=== PATIENT | male | born 1995 | race Caucasian/White ===

== ENCOUNTER 2020-10-05 08:48 | Observation (INO) | payer BC, SELFPAY ==
[2020-10-05] VITALS (19 sets, daily range): BP systolic 112–145; BP diastolic 50–89; PULSE 58–78; RESP 12–20; TEMP 36.2–37.9; O2SAT 97–100; BMI 30.4
--- NOTE | ~2020-10-05 | CT_ITS ---
EXAMINATION: CT abdomen pelvis w con EXAM DATE: 10/05/2020 09:57 INDICATION: RLQ pain . TECHNIQUE: Spiral CT of the abdomen and pelvis was performed following intravenous injection of 1 mL Omnipaque 350. Axial, coronal and sagittal images of the abdomen and pelvis were reviewed. The dose -length product (DLP) for this examination was 559.98 mGy-cm. The exposure was tailored according to patient size (auto mA exposure control), and iterative reconstruction (ASIR) was used as additional dose reduction technique. There is no prior study for comparison. FINDINGS: The liver, spleen, adrenal glands and pancreas are unremarkable. Gallbladder is unremarkab le. No biliary obstruction. Portal and splenic veins are patent. Kidneys enhance symmetrically. T here is no hydronephrosis. The prostate is unremarkable. The bladder is unremarkable. There is no retroperitoneal or pelvic lymphadenopathy. Body and tip of the appendix are severely dilated up to 1.5 cm. There is moderate adjacent inflammati on. No perforation or abscess. Acute uncomplicated appendicitis. Some small associated reactive lymph nodes. The stomach and small bowel are unremarkable. There is expected amount of colonic stool. N o free intraperitoneal gas. The heart is normal in size. There are no pericardial or pleural effus ions. The lung bases are unremarkable. The bones are unremarkable. IMPRESSION: Acute uncomplicated appendicitis. I discussed this impression with Seng Gutierrez MD at 10/05/2020 10:03 CDT. Reviewed, dictated and finalized at location A.
[2020-10-05 09:09] LABS: Basophils Percent Auto 0.2 % (0.2-1.2); Eosinophils Absolute Auto 0.1 K/mm3 (0-0.3); Eosinophils Percent Auto 0.7 % (0-4.4); Hematocrit 45.7 % (42.0-52.0); Hemoglobin 15.7 g/dL (14.0-18.0); Immature Granulocyte Absolute 0.02 K/mm3 (0.00-0.031); Immature Granulocyte Percent A 0.2 % (0-0.5); Lymphocytes Absolute Auto 2.43 K/mm3 (0.9-3.2); Lymphocytes Percent Auto 25.7 % (18.3-44.2); Mean Corpuscular HGB Conc 34.4 g/dl (32-36); Mean Corpuscular Hemoglobin 31.2 pg (26-34); Mean Corpuscular Volume 90.9 fl (80-100); Mean Platelet Volume 9.9 fl (7.4-10.4); Monocytes Absolute Auto 0.6 K/mm3 (0.1-0.6); Monocytes Percent Auto 6.3 % (2.6-8.5); Neutrophils Absolute Auto 6.3 K/mm3 (1.3-6.7); Neutrophils Percent Auto 66.9 % (45.5-73.1); Platelet Count Result 254 k/mm3 (150-375); Red Blood Count 5.03 M/mm3 (4.6-6.20); Red Cell Distribution Width 11.9 % (11.5-14.5); White Blood Count 9.5 K/mm3 (4.5-10.0)
[2020-10-05 09:18] LABS: Alanine Aminotransferase 17 U/L (4-50); Albumin Level 4.6 g/dL (3.5-5.1); Alkaline Phosphatase 66 U/L (38-126); Anion Gap 10 mmol/L (8-16); Aspartate Amino Transferase 24 U/L (17-59); Bilirubin,Total 0.9 mg/dL (0.2-1.3); Blood Urea Nitrogen 14 mg/dL (9-20); Calcium 9.7 mg/dL (8.4-10.2); Carbon Dioxide 27 mmol/L (22-30); Chloride 105 mmol/L (98-107); Estimated CRCL calculation 120 ml/min; Estimated Glomerular Filt Rate > 60; Glucose 98 mg/dL (75-110); Lipase 30 U/L (23-300); Sodium 142 mmol/L (137-145)
[2020-10-05] MEDS: MORPHINE SULFATE (*CRX) 4 MG/ML INJ IV PUSH (09:22)
--- NOTE | 2020-10-05 09:31 | ED.GENADULT ---
HPI - General Adult General Chief complaint: Abdominal Pain Stated complaint: R Abd Pain Time Seen by Provider: 10/05/20 09:06 History of Present Illness HPI narrative: Patient is a 25-year-old male who presents ER with right lower quadrant abdominal pain. Had generalized abdominal pain in the lower abdomen 2 days ago but worsened in the right lower quadrant of the last day. Mild nausea but no vomiting. No diarrhea or constipation. No previous symptoms like this. Denies urinary symptoms. Pain is worse with any type of movement and better with sitting still. Related Data Home Medications Medication Instructions Recorded Confirmed No Home Medications 10/05/20 10/05/20 Allergies Allergy/AdvReac Type Severity Reaction Status Date / Time No Known Allergies Allergy Verified 10/05/20 09:22 Review of Systems Review of Systems: All systems reviewed & are unremarkable except as noted in HPI and below Constitutional: Constitutional: Denies chills and Denies fever(s) Gastrointestinal: Gastrointestinal: Reports abdominal pain, Denies constipation, Denies diarrhea, Reports nausea and Denies vomiting Genitourinary: Genitourinary: Denies hematuria, Denies dysuria and Denies urinary frequency PMFSH Past Medical History Medical History (Updated 10/05/20 @ 11:03 by Seng Gutierrez MD) Healthy adult male Surgical History Surgical History (Updated 10/05/20 @ 09:32 by Seng Gutierrez MD) No history of previous surgery Social History Social History (Updated 10/05/20 @ 09:32 by Seng Gutierrez MD) Smoking status: Never smoker Exam Narrative: Exam Narrative: GENERAL: Well-appearing, well-nourished, and in no acute distress. HEAD: Normocephalic, atraumatic. ENT: Mucous membranes moist. CHEST: Clear to auscultation. No respiratory distress. HEART: Regular rate and rhythm. Normal peripheral pulses. ABDOMEN: Soft, tender palpation right lower quadrant with guarding, nondistended. EXTREMITIES: Normal range of motion. No edema. SKIN: Warm, dry, no rash. NEURO: Alert and oriented x3. PSYCH: Normal mood and affect. Course Course Emergency Course: Discussed case with general surgery. Recommends admission for observation until an OR slot can be found. IV antibiotics ordered. Patient will remain n.p.o. Vital Signs Vital signs: Vital Signs Temperature 97.5 F L 10/05/20 08:53 Pulse Rate 67 10/05/20 08:53 Respiratory Rate 18 10/05/20 08:53 Blood Pressure 145/84 H 10/05/20 08:53 Pulse Oximetry 100 10/05/20 08:53 Temperature 97.5 F L 10/05/20 08:53 Pulse Rate 71 10/05/20 10:20 Respiratory Rate 18 10/05/20 10:20 Blood Pressure 127/75 10/05/20 10:20 Pulse Oximetry 98 10/05/20 10:20 Medical Decision Making Vital Signs Vital Signs: Vital Signs Temperature 97.5 F L 10/05/20 08:53 Pulse Rate 67 10/05/20 08:53 Respiratory Rate 18 10/05/20 08:53 Blood Pressure 145/84 H 10/05/20 08:53 Pulse Oximetry 100 10/05/20 08:53 Temperature 97.5 F L 10/05/20 08:53 Pulse Rate 71 10/05/20 10:20 Respiratory Rate 18 10/05/20 10:20 Blood Pressure 127/75 10/05/20 10:20 Pulse Oximetry 98 10/05/20 10:20 Lab Data Result diagrams: 10/05/20 08:58 10/05/20 08:58 Labs: Lab Results 10/05/20 10/05/20 10/05/20 Range/Units 08:58 08:58 09:25 WBC 9.5 (4.5-10.0) K/mm3 RBC 5.03 (4.6-6.20) M/mm3 Hgb 15.7 (14.0-18.0) g/dL Hct 45.7 (42.0-52.0) % MCV 90.9 (80-100) fl MCH 31.2 (26-34) pg MCHC 34.4 (32-36) g/dl RDW 11.9 (11.5-14.5) % Plt Count 254 (150-375) k/mm3 MPV 9.9 (7.4-10.4) fl Immature Gran % (Auto) 0.2 (0-0.5) % Neut % (Auto) 66.9 (45.5-73.1) % Lymph % (Auto) 25.7 (18.3-44.2) % [place] % (Auto) 6.3 (2.6-8.5) % Eos % (Auto) 0.7 (0-4.4) % Baso % (Auto) 0.2 (0.2-1.2) % Lymph # (Auto) 2.43 (0.9-3.2) K/mm3 [place] # (Auto) 0.6 (0.1-0.6) K/mm3
[2020-10-05 09:39] LABS: Add Urine Microscopic? YES; Appearance Urine Clear (Clear); Bilirubin Urine Negative (Negative); Blood Urine Negative (Negative); Color Urine Yellow (Yellow); Glucose Urine UA Negative (Negative); Ketones Urine Negative (Negative); Leukocyte Esterase Ur Negative LEU/UL (Negative); Mucus Urine Rare /lpf; Nitrate Urine Negative (Negative); Protein Urine Negative (Negative); RBC Urine 0-2 /hpf (0-2); Specific Grav Ur 1.024 (1.001-1.035); WBC Urine 0-3 /hpf
[2020-10-05] MEDS: ERTAPENEM 1 GM/NS 50 ML 1 GM/50 ML BAG IVPB (10:30)
--- NOTE | 2020-10-05 11:05 | PC.NURSE ---
Report given to BROWN [place]
--- NOTE | 2020-10-05 12:23 | ADMGEN ---
This patient, Samson Godoy, was admitted to [facility] Surg Room 309-01. Patient/family oriented to hospital policies and general routines including ID bracelet, bed and alarms, visiting hours, pain management, procedures, bathroom and other care routines, personal items, smoking policy, room service/diet, and visiting hours. Information on how to activate the Rapid Response Team has been discussed. Patient/Family are encouraged to report perceived risks to care and to ask questions if they do not understand what they are told or what they should do.
[2020-10-05] MEDS: SODIUM CHLORIDE 0.9% IV 1,000 ML 100 ML IV CONT (12:52)
--- NOTE | 2020-10-05 12:54 | PM.IMHP ---
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 This was mostly at the umbilicus level or lower. He went home from work at 11AM yesterday and had something eat and slept and promised himself that he if got up the next afternoon he would go the hospital if it was not better. The pain did seem to be better and he went to work again last night at about 11:00 p.m. and forced himself to eat some chicken sandwiches at about 2:00 a.m. this morning. After that though the pain got worse so he left before the end of his shift at around 8:00 a.m. this morning and came to the hospital emergency room here at [place]. Workup the emergency room shows acute uncomplicated appendicitis. See CT scan report. Patient is otherwise fairly healthy. Review of Systems Constitutional: Constitutional: Reports no additional constitutional complaints and Denies frequent falls Eyes: Eyes: Reports as per HPI ENT: Reports Normal hearing present, Denies dizziness and Reports other (Mucous membranes moist.) Cardiovascular: Cardiovascular: Denies chest pain, Denies palpitations, Denies dyspnea and Denies dyspnea on exertion Respiratory: Respiratory: Denies hemoptysis, Denies dyspnea, Denies dyspnea on exertion and Denies wheezing Gastrointestinal: Gastrointestinal: Reports as per HPI, Denies heartburn, Denies loose stools and Denies vomiting Genitourinary: Genitourinary: Denies hematuria, Denies nocturia and Denies urinary frequency Musculoskeletal: Musculoskeletal: Denies deformity and Reports other ( no clubbing,cyanosis, or edema) Integumentary/Breasts: Skin/Breast: Denies new lesions, Denies rash and Denies unusual bruising Neurologic: Reports Normal hearing present, Denies dizziness, Denies frequent falls, Denies memory loss and Denies seizure-like activity Psychiatric: Psychiatric: Denies memory loss and Reports other ( normal mood and mental status) Endocrine: Endocrine: Denies cold intolerance and Denies palpitations Hematologic/Lymphatic: Hematologic/Lymphatic: Denies easy bleeding and Denies easy bruising Allergic/Immunologic: Allergic/Immunologic: Denies wheezing and Reports other ( no lymphadenopathy) [facility] Past Medical History Medical History (Updated 10/05/20 @ 13:13 by Rustam Stack MD) Healthy adult male Surgical History Surgical History (Updated 10/05/20 @ 09:32 by Seng Gutierrez MD) No history of previous surgery Family History Family History (Updated 10/05/20 @ 12:26 by Venkat Joens RN) Father Hypertension Social History Social History (Updated 10/05/20 @ 09:32 by Seng Gutierrez MD) Smoking status: Never smoker Alcohol intake: current Drinks per week: 2 Substance use: never Substance use type: does not use Gender identity (if verbalized by the patient): Male Spiritual care concerns: No Meds Home Medications and Allergies Home Medications Medication Instructions Recorded Confirmed Type No Home Medications 10/05/20 10/05/20 History Allergies Allergy/AdvReac Type Severity Reaction Status Date / Time No Known Allergies Allergy Verified 10/05/20 12:29 Vital Signs Vital Signs - 24 hr 10/05/20 08:53 10/05/20 09:20 10/05/20 10:20 Temperature 36.4 C L Pulse Rate 67 66 71 Respiratory Rate 18 18 18 Blood Pressure 145/84 H 139/85 127/75 Pulse Oximetry 100 100 98 10/05/20 11:35 10/05/20 12:05 10/05/20 12:30 Temperature 36.2 C L 36.2 C L Pulse Rate 78 76 76 Respiratory Rate 16 20 20 Blood Pressure 123/84 138/67 138/67 Pulse Oximetry 98 100 100 Exam Const: General: cooperative, no acute distress, well developed, alert and awake Nutritional Appearance: well nourished Orientation
--- NOTE | 2020-10-05 14:24 | WPDANESEPPF ---
Anes - Initial Pre Proc Eval Procedure: Operation Date: 10/05/20 15:30 Proposed Procedures p Laparoscopic Appendectomy - Rustam Stack MD Date/Time: 10/05/20 14:24 Surgeon: Debi Renner MD Pre Op Diagnosis: appendicites Patient Data Age: 25 Gender: M Height: 1.8 m Weight: 99.1 kg Last Vital Signs Temp 36.6 C 10/05/20 14:08 Pulse 68 10/05/20 14:08 Resp 14 10/05/20 14:08 BP 141/61 H 10/05/20 14:08 Pulse Ox 98 10/05/20 14:08 Allergies Allergy/AdvReac Type Severity Reaction Status Date / Time No Known Allergies Allergy Verified 10/05/20 12:29 Home Medications Medication Instructions Recorded Confirmed Type No Home Medications 10/05/20 10/05/20 History Laboratory Tests 10/05/20 10/05/20 10/05/20 08:58 08:58 09:25 WBC 9.5 K/mm3 K/mm3 (4.5-10.0) RBC 5.03 M/mm3 M/mm3 (4.6-6.20) Hgb 15.7 g/dL g/dL (14.0-18.0) Hct 45.7 % % (42.0-52.0) MCV 90.9 fl fl (80-100) MCH 31.2 pg pg (26-34) MCHC 34.4 g/dl g/dl (32-36) RDW 11.9 % % (11.5-14.5) Plt Count 254 k/mm3 k/mm3 (150-375) MPV 9.9 fl fl (7.4-10.4) Immature Gran % (Auto) 0.2 % % (0-0.5) Neut % (Auto) 66.9 % % (45.5-73.1) Lymph % (Auto) 25.7 % % (18.3-44.2) [place] % (Auto) 6.3 % % (2.6-8.5) Eos % (Auto) 0.7 % % (0-4.4) Baso % (Auto) 0.2 % % (0.2-1.2) Lymph # (Auto) 2.43 K/mm3 K/mm3 (0.9-3.2) [place] # (Auto) 0.6 K/mm3 K/mm3 (0.1-0.6) Eos # (Auto) 0.1 K/mm3 K/mm3 (0-0.3) Baso # (Auto) 0.0 K/mm3 K/mm3 (0.0-0.1) Abs Immat Gran (auto) 0.02 K/mm3 K/mm3 (0.00-0.031) Absolute Neuts (auto) 6.3 K/mm3 K/mm3 (1.3-6.7) Absolute Nucleated RBC 0.0 K/mm3 K/mm3 (0.0-0.012) Nucleated RBC % 0.0 % % (0.0-0.2) Sodium 142 mmol/L mmol/L (137-145) Potassium 4.0 mmol/L mmol/L (3.4-5.0) Chloride 105 mmol/L mmol/L (98-107) Carbon Dioxide 27 mmol/L mmol/L (22-30) Anion Gap 10 mmol/L mmol/L (8-16) BUN 14 mg/dL mg/dL (9-20) Creatinine 1.00 mg/dL mg/dL (0.7-1.3) Estim Creat Clear Calc 120 ml/min ml/min Estimated GFR > 60 (59 - ) Glucose 98 mg/dL mg/dL (75-110) Calcium 9.7 mg/dL mg/dL (8.4-10.2) Total Bilirubin 0.9 mg/dL mg/dL (0.2-1.3) AST 24 U/L U/L (17-59) ALT 17 U/L U/L (4-50) Alkaline Phosphatase 66 U/L U/L (38-126) Total Protein 8.0 g/dL g/dL (6.3-8.2) Albumin 4.6 g/dL g/dL (3.5-5.1) Lipase 30 U/L U/L (23-300) Urine Color Yellow (Yellow) Urine Appearance Clear (Clear) Urine pH 6.0 (5.0-9.0) Ur Specific [place] 1.024 (1.001-1.035) Urine Protein Negative mg/dL mg/dL (Negative) Urine Glucose (UA) Negative mg/dL mg/dL (Negative) Urine Ketones Negative mg/dL mg/dL (Negative) Ur Blood (Man) Negative (Negative) Urine Nitrate Negative (Negative) Urine Bilirubin Negative (Negative) Urine Urobilinogen 2.0 mg/dL H mg/dL (<2.0) Leukocyte Esterase Rfl Negative JERROD/UL JERROD/UL (Negative) Urine RBC 0-2 /hpf /hpf (0-2) Urine WBC 0-3 /hpf /hpf Urine Mucus Rare /lpf /lpf Patient hx anesthesia problems: none Family hx anesthesia problems: none [facility] Past Medical History Medical History (Updated 10/05/20 @ 14:25 by Tab Gorman MD) Healthy adult male Obesity (BMI 30.0-34.9) (Unknown) Surgical History Surgical History (Updated 10/05/20 @ 09:32 by Seng Gutierrez MD) No history of previous surgery Family History Family History (Updated 10/05/20 @ 12:26 by Venkat Jones RN) Fa
[2020-10-05] MEDS: LACTATED RINGERS 1,000 ML 30 ML IV CONT (14:35)
[2020-10-05] MEDS: BUPIVACAINE/EPINEPHRINE 0.5% 10 ML VIAL 30 ML INFILTRATE (15:39)
--- NOTE | 2020-10-05 16:11 | W.PM.PROC2 ---
Procedure Note - Detailed Date of Procedure 10/05/20 Pre-op Diagnosis Acute uncomplicated appendicitis Post-op Diagnosis same Procedure Performed laparoscopic appendectomy Surgeon Rustam Stack MD Construction Checker Sandrita DASILVA. OR Behavioral Health Clinician Anesthesia general Indications Patient appropriate symptoms and a CT scan showing I swollen appendix with inflammation in the fat around it. Findings Inflamed appendix lying just lateral to the cecum with inflammatory attachments to the right lateral abdominal sidewall that were taken down easily. Description of Procedure The patient was seen again in the Holding Room. The risks, benefits, complications, treatment options, and expected outcomes were discussed with the patient and/or family. The possibilities of reaction to medication, pulmonary aspiration, perforation of viscus, bleeding, recurrent infection, finding a normal appendix, the need for additional procedures, failure to diagnose a condition, and creating a complication requiring transfusion or operation were discussed. There was concurrence with the proposed plan and informed consent was obtained. The site of surgery was properly noted/marked. The patient was taken to Operating Room, and a time out was preformed which identified this as the proper patient, and the procedure verified as laparoscopic appendectomy, possible open. The patient was placed in the supine position and general anesthesia was induced, along with placement of orogastric tube, SCD hose, and a Hough catheter. The abdomen was prepped and draped in a sterile fashion. A 5 mm umbilical incision was made and the peritoneal cavity was accessed using the Veress needle technique. Once the abdomen was insufflated to 14 mmHg pressure a 5 mm XL trocar over the 0? 5 mm scope was carefully twisted into the abdomen via the umbilicus. The pneumoperitoneum was then established to steady pressure of 14 mm Hg. A 12 mm laparoscopic port was placed through a transverse suprapubic incision. An additional 5 mm cannula was then placed in the left lower quadrant of the abdomen at a level half way between the umbilicus and pubic symphysis under direct vision. A careful evaluation of the entire abdomen was carried out. The patient was placed in Trendelenburg and left lateral decubitus position. The small intestines were retracted in the cephalad and left lateral direction away from the pelvis and right lower quadrant. The patient was found to have an enlarged and inflamed appendix that was extending [into the right side of the pelvis. There was no evidence of perforation. The appendix was carefully dissected. Once it was free a 45 mm ethicon endogastroentestinal stapler with a vascular load was placed across the mesoappendix and the base was narrow enough that it fit all the way across the base of the Appendix also. This was fired and hemostasis was checked along the staple line and appeared to be adequate. There was approximately 7 cc of blood that accumulated initially after transecting the specimen however we packed this with an unfolded 4 x 4 as we extracted the appendix and when we looked again all bleeding was stopped. Minimal appendiceal stump was left in place. There was no evidence of bleeding, leakage, or complication after division of the appendix at its junction with the cecum.. The appendix was then placed in an endobag which had been brought through the 12 mm suprapubic port site. The appendix and the bag were then extracted through this larger port site in the suprapubic position. The suprapubic port site was closed using a #1 Polysorb suture passed with a Catarino-Mendez cone and needle suture passer and a subsequent separate suture was placed using a standard needle lucero externally through the an incision at the level of the fascia. The trocar site skin wounds were closed using 4-0 undyed Monocryl and surgical glue. Instrument, sponge, and needle counts were correct at the conclusion of the
[2020-10-05] MEDS: ONDANSETRON INJ 4 MG/2 ML VIAL IV PUSH (16:33)
[2020-10-05] MEDS: diphenhydrAMINE HCl INJ 50 MG/ML VIAL 25 MG IV PUSH (16:37)
[2020-10-05] MEDS: fentaNYL CITRATE INJ (*CRX) 100 MCG/2 ML VIAL 25 MCG IV PUSH ×2 (16:40→16:53)
--- NOTE | 2020-10-05 17:42 | PC.NURSE ---
Patient returned to room [facility] from PACU at 1735
[2020-10-05] MEDS: HYDROcodone/acetaminophen (*CRX) 5-325 MG TABLET 1 TAB PO (20:34)
[2020-10-05] MEDS: SENNA/DOCUSATE SODIUM TABLET 2 TAB PO (20:34)
[2020-10-06 03:06] VITALS: BP 116/48; PULSE 60; RESP 18; TEMP 36.6; O2SAT 98
[2020-10-06] MEDS: HYDROcodone/acetaminophen (*CRX) 5-325 MG TABLET 1 TAB PO (03:55)
[2020-10-06 06:00] VITALS: BP 119/54; PULSE 61; RESP 18; TEMP 37.1; O2SAT 99
[2020-10-06] MEDS: SODIUM CHLORIDE 0.9% IV 1,000 ML 100 ML IV CONT (06:15)
[2020-10-06 07:06] VITALS: BP 125/76; PULSE 104; RESP 18; TEMP 36.1; O2SAT 97
[2020-10-06 07:15] LABS: Hematocrit 43.7 % (42.0-52.0); Hemoglobin 15.2 g/dL (14.0-18.0); Mean Corpuscular HGB Conc 34.8 g/dl (32-36); Mean Corpuscular Hemoglobin 31.2 pg (26-34); Mean Corpuscular Volume 89.7 fl (80-100); Mean Platelet Volume 10.5 fl (7.4-10.4); Platelet Count Result 272 k/mm3 (150-375); Red Blood Count 4.87 M/mm3 (4.6-6.20); Red Cell Distribution Width 11.6 % (11.5-14.5); White Blood Count 9.8 K/mm3 (4.5-10.0)
[2020-10-06 07:32] LABS: Anion Gap 11 mmol/L (8-16); Blood Urea Nitrogen 12 mg/dL (9-20); Calcium 9.7 mg/dL (8.4-10.2); Carbon Dioxide 26 mmol/L (22-30); Chloride 103 mmol/L (98-107); Estimated CRCL calculation 132 ml/min; Estimated Glomerular Filt Rate > 60; Glucose 98 mg/dL (75-110); Potassium 3.9 mmol/L (3.4-5.0); Sodium 140 mmol/L (137-145)
--- NOTE | 2020-10-06 07:40 | WPDANESPN ---
Anes - Prog Note Post-Op Date/Time: 10/06/20 07:40 Cardiovascular status: normal Respiratory status: normal Airway patency: baseline Mental status: baseline Post-Op hydration status: normal Vital Signs: Last Vital Signs Temp 98.8 F 10/06/20 06:00 Pulse 61 10/06/20 06:00 Resp 18 10/06/20 06:00 BP 119/54 L 10/06/20 06:00 Pulse Ox 99 10/06/20 06:00 Pain Score (VAS): 0-1 I/O: Intake & Output 10/05/20 10/05/20 10/06/20 15:59 23:59 07:59 Intake Total 1200 750 Output Total 450 400 Balance 750 350 Laboratory Tests 10/06/20 05:38 10/06/20 05:38 10/05/20 10/05/20 10/05/20 08:58 08:58 09:25 WBC 9.5 RBC 5.03 Hgb 15.7 Hct 45.7 MCV 90.9 MCH 31.2 MCHC 34.4 RDW 11.9 Plt Count 254 MPV 9.9 Immature Gran % (Auto) 0.2 Neut % (Auto) 66.9 Lymph % (Auto) 25.7 [place] % (Auto) 6.3 Eos % (Auto) 0.7 Baso % (Auto) 0.2 Lymph # (Auto) 2.43 [place] # (Auto) 0.6 Eos # (Auto) 0.1 Baso # (Auto) 0.0 Abs Immat Gran (auto) 0.02 Absolute Neuts (auto) 6.3 Absolute Nucleated RBC 0.0 Nucleated RBC % 0.0 Sodium 142 Potassium 4.0 Chloride 105 Carbon Dioxide 27 Anion Gap 10 BUN 14 Creatinine 1.00 Estim Creat Clear Calc 120 Estimated GFR > 60 Glucose 98 Calcium 9.7 Total Bilirubin 0.9 AST 24 ALT 17 Alkaline Phosphatase 66 Total Protein 8.0 Albumin 4.6 Lipase 30 Urine Color Yellow Urine Appearance Clear Urine pH 6.0 Ur Specific [place] 1.024 Urine Protein Negative Urine Glucose (UA) Negative Urine Ketones Negative Ur Blood (Man) Negative Urine Nitrate Negative Urine Bilirubin Negative Urine Urobilinogen 2.0 H Leukocyte Esterase Rfl Negative Urine RBC 0-2 Urine WBC 0-3 Urine Mucus Rare 10/06/20 10/06/20 05:38 05:38 WBC 9.8 RBC 4.87 Hgb 15.2 Hct 43.7 MCV 89.7 MCH 31.2 MCHC 34.8 RDW 11.6 Plt Count 272 MPV 10.5 H Immature Gran % (Auto) Neut % (Auto) Lymph % (Auto) [place] % (Auto) Eos % (Auto) Baso % (Auto) Lymph # (Auto) [place] # (Auto) Eos # (Auto) Baso # (Auto) Abs Immat Gran (auto) Absolute Neuts (auto) Absolute Nucleated RBC Nucleated RBC % Sodium 140 Potassium 3.9 Chloride 103 Carbon Dioxide 26 Anion Gap 11 BUN 12 Creatinine 0.90 Estim Creat Clear Calc 132 Estimated GFR > 60 Glucose 98 Calcium 9.7 Total Bilirubin AST ALT Alkaline Phosphatase Total Protein Albumin Lipase Urine Color Urine Appearance Urine pH Ur Specific [place] Urine Protein Urine Glucose (UA) Urine Ketones Ur Blood (Man) Urine Nitrate Urine Bilirubin Urine Urobilinogen Leukocyte Esterase Rfl Urine RBC Urine WBC Urine Mucus Patient Feedback: Patient satisfied with anesthetic care.
--- NOTE | 2020-10-06 08:44 | PM.DS ---
DS: Admitting Diagnosis Admitting Diagnosis Admitting Diagnosis: Acute uncomplicated appendicitis Obesity with BMI of 30 DS: Discharge Diagnosis Discharge Diagnosis (1) Acute appendicitis, uncomplicated: Onset Date: ~10/04/20 Code(s): K35.80 - Unspecified acute appendicitis Status: Acute Assessment and Plan: Laparoscopic appendectomy by Dr. Stack on 10/05/2020 (2) Obesity (BMI 30.0-34.9): Onset Date: Unknown Code(s): E66.9 - Obesity, unspecified Status: Acute DS: Summary Hospital Course Reason for hospitalization: This is a 25-year-old male who presented to the ER with complaints of lower abdominal pain beginning 3 nights ago. His workup in the ED showed evidence of acute uncomplicated appendicitis on the CT scan. Patient otherwise healthy. Our service was contacted by the ED physician and he was admitted in this setting. Hospital Course: The patient was taking for an urgent laparoscopic appendectomy on 10/05/[address] Stack. In surgery, he was found to have an inflamed appendix without any signs of perforation. He recovered well and was sent to the medical floor postop. He was kept overnight for observation. His diet has slowly been advanced to a regular diet. His pain is well controlled this morning with oral analgesics. He is voiding without difficulty. Vital signs are stable and labs are unremarkable this morning. Patient is stable for discharge today. Pathology pending and will be discussed in follow-up in the office. Status at Discharge Functional status at discharge: independent ambulation Overall status at discharge: patient is progressing back to baseline Time Spent with Patient Time attestation: Total time spent providing and/or coordinating discharge services: Time spent: Less than 30 minutes Exam Const: General: comfortable, no acute distress, alert and awake Orientation/consciousness: patient oriented x3 Resp: Effort & Inspection: no respiratory distress Auscultation: clear to auscultation bilaterally Cardio: Rate: regular rate Rhythm: regular rhythm GI: Inspection: non-distended and incision (Abdominal incisions clean and dry with glue intact) GI Palp: Yes Soft to palpation, Yes Tenderness to palpation present (GI) (Appropriate postop tenderness), No Guarding due to palpation present (GI) and No Rebound tenderness present Auscultation: Hypoactive bowel sounds present Skin: General skin exam: normal color Neuro: General: moves all extremities and no focal motor deficits Extrem: General: normal to inspection, no clubbing, cyanosis or edema and no calf tenderness Psych: Mental Status: mental status grossly normal Insight: Good insight present (Psych) Judgement: Good judgement present (Psych) DS: Data Data Completed and Pending Completed studies during hospitalization: ITS Impressions Abdomen/Pelvis CT 10/05/20 10:00 IMPRESSION: Acute uncomplicated appendicitis. I discussed this impression with Seng Gutierrez MD at 10/05/2020 10:03 CDT. Pending studies at discharge: Pending at discharge 10/05/20 15:35 Surgical [PTH] Routine Labs on day of discharge: Labs from last 24 hours 10/06/20 10/06/20 10/05/20 05:38 05:38 09:25 WBC 9.8 RBC 4.87 Hgb 15.2 Hct 43.7 MCV 89.7 MCH 31.2 MCHC 34.8 RDW 11.6 Plt Count 272 MPV 10.5 H Immature Gran % (Auto) Neut % (Auto) Lymph % (Auto) [place] % (Auto) Eos % (Auto) Baso % (Auto) Lymph # (Auto) [place] # (Auto) Eos # (Auto) Baso # (Auto) Abs Immat Gran (auto) Absolute Neuts (auto) Absolute Nucleated RBC Nucleated RBC % Sodium 140 Potassium 3.9 Chloride 103 Carbon Dioxide 26 Anion Gap 11 BUN 12 Creatinine 0.90 Estim Creat Clear Calc 132 Estimated GFR > 60 Glucose 98 Calcium 9.7 Total Bilirubin AST ALT Alkaline Phosphatase Total Protein [place]
[2020-10-06] MEDS: HYDROcodone/acetaminophen (*CRX) 7.5-325 MG TABLET 1 TAB PO (09:41)
[2020-10-06 09:53] VITALS: O2SAT 99
== END 2020-10-06 11:16 | disposition home or self-care (01) ==
LOC: ANHED 11:03 → ANH3MEDSUR 11:19
PROVIDERS: Admitting Provider Surgery; Emergency Provider Emergency Medicine; Visit Provider Surgery
PROC: 0DTJ4ZZ Resection of Appendix, Percutaneous Endoscopic Approach (ICD-10-PCS; CPT 44970; principal; 2020-10-05 15:30)
DX: K35.30 Acute appendicitis with localized peritonitis, without perforation or gangrene (principal); E66.9 Obesity, unspecified; Z68.30 Body mass index [BMI] 30.0-30.9, adult; K35.80 Unspecified acute appendicitis
CPT/HCPCS: 44970; 36415; 74177; 80048; 80053; 81001; 83690; 85025; 85027; 88304; 96361; 96365; 96375; 99285; A9270; G0378; J0330; J1100; J1200; J1335; J2250; J2270; J2405; J2704; J2710; J3010; J7030; J7120; Q9967

== ENCOUNTER 2024-06-23 22:48 | Emergency (ER) | payer BC, SELFPAY ==
--- NOTE | ~2024-06-23 | XR_ITS ---
EXAM: XR hand RT min 3V DATE: 06/23/2024 23:40 HISTORY: right hand pain, injury . COMPARISON: None available. FINDINGS: Normal mineralization. Comminuted distal right fifth metacarpal fracture with intra-articu lar extension and anterior angulation. No lytic or blastic lesion. Joint spaces are maintained. No er osion or periosteal change. Soft tissue swelling over the fracture site. IMPRESSION: Comminuted intra-articular boxer's fracture of the right fifth metacarpal head. Reviewed, dictated and finalized at location K. SPOTTER IMPRESSION: Comminuted intra-articular boxer's fracture of the right fifth meta carpal head.
--- OUTSIDE RECORDS SUMMARY | 2024-06-23 22:50 | XMS_ITS | Continuity of Care Document ---
Author Organization [employer] [place] Address [address] [place] [address] Phone Care Team Providers Care Voice Systems Engineer Name Role Phone Mohit Casillas NP Unavailable Unavailable Allergies, Adverse Reactions, Alerts Substance Reaction Status Criticality No Known Allergies Active No Inform ation Medications Medication Instructions Dosage Effective Dates (start - stop) Status Comments ESCITALOPRAM 5MG TABLETS TAKE 1 TABLET BY MOUTH EVERY DAY - Active Procedures Procedure Date Brief Emotional/Behavioral A ssessment, With Scoring/Doct, Per Stndrd Instrument Clin depression screen doc Brief Emotional/Behavioral A ssessment, With Scoring/Doct, Per Stndrd Instrument OFFICE [id number] BODY MASS INDEX DOCD SYST BP LT 130 MM HG DIAST BP < 80 MM HG Brief Emotional/Behavioral A ssessment, With Scoring/Doct, Per Stndrd Instrument Clin depression screen doc Brief Emotional/Behavioral A ssessment, With Scoring/Doct, Per Stndrd Instrument OFFICE [id number]-MED BODY MASS INDEX DOCD SYST BP LT 130 MM HG DIAST BP < 80 MM HG Advance Directives Directive Yes / No Effective Date File Name Life Support Not Answered N/A N/A Intubation Not Answered N/A N/A Antibiotics Not Answered N/A N/A IV Fluid Support Not Answered N/A N/A Tube Feed Not Answered N/A N/A Other Directive N/A N/A WARNING:The information contained in this section is historical and is provided for information only and does not constitute a legal document or any assurance that the information is still accurate. Please verify the information with the lucero of the legal document before using it for clinical purposes. Encounters Encounter Description Practice Location Reason(s) For Visit Diagnoses Date Provider Providers Copied on Encounter [facility], [address], [place], [place], [id number] , tel: [phone] [facility] No Information 4 Vinny Rueda. [address] [place] [address], [address], [place]. tel: [phone] [facility], [address], [place], [place], [id number] , tel: [phone] [facility] No Information 4 Jn Glover. [address] [place] [address], [id number] , [place]. tel: [phone] OFFICE GSVFW-YPI-BU PANDED [facility], [address], [place], [place], [address] , [place] tel: [phone] [facility] 6 week f/u (chief complaint)C hronic Conditions (chief complaint) Body mass index [BMI] 32.0-32.9, adultMajor depressive disorder, recurrent, moderate 4 Omid Walker. [address] [place] [address], [id number] , [place]. tel: [phone] Referring Provider: Denise Babcock, [address] [place] [address], [id number] . tel:[phone] OFFICE YOONM-KFW-LH MP-MED [facility], [address], [place], [place], [id number] , [place] tel: [phone] [facility] new pt (chief complaint) Body mass index [BMI] 32.0-32.9, adultCurrent moderate episode of major depressive disorder without prior episodeAnxietyObesit y (BMI 30-39.9)Impaired attention 4 Jn Glover. [address] [place] [address], [id number] , [place]. tel:[phone] Referring Provider: Denise Babcock, [address] [place] [address], [id number] . tel:[phone] Family History Family Member Type Diagnosis Age At Onset Paternal grandmother Problem Diabetes mellitus Maternal grandmother Problem CAD Brother Problem Alive and well Sister Problem Alive and well Mother Problem DM, HTN, MDD, MARCELLE, HLD, obes ity, GERD Father Problem Diabetes mellitus Paternal grandfather Problem CAD Maternal grandfather Problem Factor V Leiden w/ h /o clots Half sister (P) Problem Alive and well Payers Payer name Insurance type Covered alliance party ID Authordex moratameka(s) [facility] [id number] Social History Type Description Quantity Date Captured Comments Alcohol Use Details Unknown Caffeine Use Details Unknown Tobacco Use Status No Information Smoking Status No Information Sex Male Sexual Orientation Straight or heterosexual Gender Identity Male Chief Complaint And Reason For Visit No Information Reason For Referral Reason For Referral No Information Plan Of Treatment Date Type Action Status Goal Dietary management education , guidance, and counseling completed Goal Dietary management education , guidance, and counseling completed History Of Present Illness Encounter Date Complaint History Of Prese nt Illness 6 week f/u pt due for:Adv c are planning - pt does not have LW/POA - pt not interested on information at this timeRecent visits:n/aFuture appt:n/aVaccinations due:COVID - pt will bring copy of vaccination card COVID boost - pt refusesTD/TDAP - [facility] Chronic Conditions *See Chronic Conditions HPI new pt Patient presents to office to establish care as a new patient.Previous PCP: noneHe is and lives at home alone.He works full-time at [employer] working swing shift. no children.Mother, Darcie Tellez is a RN and patient of Dr. Saenz.Specialists: noneAllergies: NKDADiagnoses: noneSurgeries: appendectomy 2020Family hxMother: DM, HTN, MDD, MARCELLE, HLD, obesity, GERDFather: diabetesBrother: healthySister: healthHalf sister (paternal): healthyMaternal grandmother: d/t CADMaternal grandfather: Factor V Leiden w/ h/o clotsPaternal grandmother: living, DMPaternal grandfather: , CADScreenings:Eye exam - 11/2022 glassesImmunizations:Flu - noCOVID - 2Tetanus - yesTobacco: noAlcohol: sociallyCaffeine: 2 cups coffeeExercise: deniesCurrent concernsMDD/MARCELLE: The patient reports getting several years ago and getting back together with his ex-. They re- in April due to her infidelity. He reports intermittent struggles with his overall mood. PHQ 7 and MARCELLE-7 are positive for anxiety and depression. He is currently speaking to a therapist over the phone intermittently but is interested in optimizing his overall mental health. He works swing shift and is struggling with sleeping due to his anxiety which is complicated by his alternating schedule. He denies suicidal and homicidal ideationImpaired attention: Patient reports struggling with focus for majority of his life. He is interested in returning to school at some point but not at this time. He states he is able to complete tasks at work without difficulty.Obesity: Patient reports fluctuations in his weight due to his anxiety and depression. He has lost over 20 pounds in the last several weeks due to only eating approximately 1 meal a day. He would like to maintain the weight loss but is aware he is not consuming enough nutrition.He is not currently exercising but purchasing some equipment for the house and plans to start. Functional Status Date Functional Assessmen t No Information Instructions Date Instruction Additional Infor amy Continue with the le xaproreturn to me in 6 monthscall me with questions or concerns Related to Major depressive disorder, recurrent, moderate Dietary management e ducation, guidance, and counseling Related to Body mass index (BMI) 32.0-32.9, adult Disease process Prescribed activity/exercise edu cation Related to Body mass index (BMI) 32.0-32.9, adult This is likely exace rbated by your stress.We can further evaluate this in the future once we get your anxiety and depression better managed if it is causing issues with functioning Related to Impaired attention As stated above Related to Anxie ty We discussed the imp ortance of healthy diet and adequate nutrition.You are currently not consuming enough calories.You plan to start incorporating exercise into your routine which can also help.We will continue to monitor your weight Related to Obesity (BMI 30-39.9) We will start you on a daily medication to better manage your mood.I sent a prescription for Lexapro 5 mg once daily to the pharmacy. We discussed common side effects and taking this consistently.The medication can take up to 4 to 6 weeks to take full effect.If you are not seeing an improvement after 1 month, call me and we can increase your dose to 10 mg daily.Follow-up again in 6 weeks so we can evaluate how you are feeling.Continue with your therapist Related to Current moderate episode of major depressive disorder without prior episode Giving encouragement to exercise Related to Body mass index (BMI) 32.0-32.9, adult Dietary management e ducation, guidance, and counseling Related to Body mass index (BMI) 32.0-32.9, adult Assessments Type Assessment Date No Information Patient Care Teams Name Effective Dates (start - stop) Status Members No Information
[2024-06-23 22:58] VITALS: BP 135/75; PULSE 64; RESP 18; TEMP 37.1; O2SAT 98
--- NOTE | 2024-06-23 23:25 | ED_ITS ---
HPI - Extremity Injury (Upper) General Chief Complaint: Extremity Injury, Upper Stated Complaint: hand injury Time Seen by Provider: 06/23/24 23:25 Source: patient Mode of arrival: ambulatory Limitations: no limitations History of Present Illness HPI narrative: This is a 29-year-old male that presents to emergency department for right hand injury. Reports he punched a table. Reports swelling and pain to the hand. Reports decreased range of motion. Denies numbness Related Data Allergies Allergy/AdvReac Type Severity Reaction Status Date / Time No Known Allergies Allergy Verified 06/24/24 00:35 Review of Systems Review of Systems: CONSTITUTIONAL: Denies fever MUSCULOSKELETAL: Reports joint pain, and myalgia. NEUROLOGIC: Denies numbness All systems reviewed & are unremarkable except as noted in HPI and below PMFSH Past Medical History Medical History Healthy adult male Obesity (BMI 30.0-34.9) (Unknown) Surgical History Surgical History History of laparoscopic appendectomy 10/05/20 Family History Family History Father Hypertension Social History Social History Smoking status: Never smoker Alcohol intake: current Drinks per week: 2 Substance use: never Substance use type: does not use Gender identity (if verbalized by the patient): Male Spiritual care concerns: No Exam Narrative: GENERAL: Well-appearing, well-nourished, and in no acute distress. HEAD: Normocephalic, atraumatic. EYES: EOMI. EXTREMITIES: Mildly decreased active ROM in the right fingers. Edema about the right 5th metacarpal. Normal radial pulse. Normal sensation SKIN: Warm, dry, no rash. NEURO: No focal deficits. Alert and oriented x3. PSYCH: Normal mood and affect Course Course Emergency Course: patient updated on workup and agrees with plan of care Vital Signs Vital signs: Vital Signs Temperature 98.7 F 06/23/24 22:58 Pulse Rate 64 06/23/24 22:58 Respiratory Rate 18 06/23/24 22:58 Blood Pressure 135/75 06/23/24 22:58 Pulse Oximetry 98 06/23/24 22:58 Oxygen Delivery Room Air 06/23/24 22:58 Temperature 98.7 F 06/23/24 22:58 Pulse Rate 64 06/23/24 22:58 Respiratory Rate 18 06/23/24 22:58 Blood Pressure 135/75 06/23/24 22:58 Pulse Oximetry 98 06/23/24 22:58 Oxygen Delivery Room Air 06/23/24 22:58 Procedures Orthopedic Splinting/Casting Injury #1: Splinting/Casting Date: 06/24/24 Splinting/Casting Time: 01:03 Side: right Upper Extremity Injury Location: hand Splint: customized in ED OCL: ulnar gutter Pre-Procedure Neuro Vascular Exam: normal Post-Procedure Neuro Vascular Exam: normal MDM - Extremity Injury (Upper) MDM Narrative Medical decision making narrative: Patient presents to the emergency department for right hand injury. He is neurovascularly intact. Hand x-ray shows comminuted intra-articular boxer's fracture. Patient placed in an ulnar gutter. Will be given follow-up with Hand surgery. He was given warnings to return to the ER Differential Diagnosis Differential diagnosis: Likely fracture of hand and other (contusion) Imaging Data Radiologist's impression: ITS Impressions Hand X-Ray 06/23/24 23:54 IMPRESSION: Comminuted intra-articular boxer's fracture of the right fifth metacarpal head. Critical Care Time Critical Care Time Critical Care Time: No Discharge Plan Discharge Clinical Impression: Fracture of fifth metacarpal bone of right hand Patient Disposition: Home, Self-Care Condition: Stable Instructions: Boxer Fracture (ED) Additional Instructions: Return to the ER if you experience fever, redness and swelling of your extremity, numbness or any other symptoms that are concerning to you Wear splint. No weight on the affected extremity. Ice and elevate extremity. Pain medication as needed and directed. Follow up with hand surgery (Dr. Shen) for further care. Patient Language: Chadian Prescriptions: New hydrocodone-acetaminophen 5-325 mg tablet 1 tablet PO Q6H PRN (Reason: pain) Qty: 20 0RF Follow-up/Referrals: Zayra Shen MD [Physician] - PHYSICIAN,PUMP AND STILL OPERATOR [Primary Care Provider] -
--- OUTSIDE RECORDS SUMMARY | 2024-06-24 00:48 | XMS_ITS | Continuity of Care Document ---
Author Organization [employer] Address [address] [place] [address] Phone Care Team Providers Care Bookie Name Role Phone Mohit Casillas NP Unavailable [...] ssessment, With Scoring/Doct, Per Stndrd Instrument OFFICE [id number] BODY MASS INDEX DOCD SYST BP LT 130 MM HG DIAST BP < 80 MM HG Brief Emotional/Behavioral A ssessment, With Scoring/Doct, Per Stndrd Instrument Clin depression screen doc Brief Emotional/Behavioral A ssessment, With Scoring/Doct, Per Stndrd Instrument OFFICE [id number]-MED BODY MASS INDEX DOCD SYST BP LT [...] Diagnoses Date Provider Providers Copied on Encounter [facility], [address], [place], [place], [id number] , tel: [phone] [facility] No Information 4 Vinny Rueda. [address] [place] [address], [address], [place]. tel: [phone] [facility], [address], [place], [place], [address] , tel: [phone] [facility] No Information 4 Jn Glover. [address] [place] [address], [id number] , [place]. tel: [phone] OFFICE UNWTN-TSZ-UQ PANDED [facility], [address], [place], [place], [id number] , [place] tel: [phone] [facility] 6 week f/u (chief complaint)C hronic Conditions (chief complaint) Body mass index [BMI] 32.0-32.9, adultMajor depressive disorder, recurrent, moderate 4 Omid Walker. [address] [place] [address], [id number] , [place]. tel: [phone] Referring Provider: Denise Babcock, [address] [place] [address], [address] . tel:[phone] OFFICE MILTA-PRS-LD MP-MED [facility], [address], [place], [place], [id number] , [place] tel: [phone] [facility] new pt (chief complaint) Body mass index [BMI] 32.0-32.9, adultCurrent moderate episode of major depressive disorder without prior episodeAnxietyObesit y (BMI 30-39.9)Impaired attention 4 Jn Glover. [address] [place] [address], [id number] , [place]. tel:[phone] Referring Provider: Denise Babcock, [address] [place] [address], [address] . tel:[phone] Family History Family Member Type Diagnosis Age [...] well Payers Payer name Insurance type Covered republican ID Authordex moratameka(s) [facility] [id number] Social History Type Description Quantity Date Captured [...] [facility] Chronic Conditions *See Chronic Conditions HPI new pt Patient presents to office to establish care as a new patient.Previous PCP: noneHe is and lives at home alone.He works full-time at [employer] working swing shift. no children.Mother, Darcie Tellez [...]
[2024-06-24 01:08] VITALS: BP 123/85; PULSE 78; RESP 18; TEMP 36.7; O2SAT 99
== END 2024-06-24 01:09 | disposition home or self-care (01) ==
PROVIDERS: Emergency Provider Physician Assistant
DX: S62.336A Displaced fracture of neck of fifth metacarpal bone, right hand, initial encounter for closed fracture (principal); W22.03XA Walked into furniture, initial encounter
CPT/HCPCS: 29125; 73130; 99284

== ENCOUNTER 2024-07-14 09:47 | Outpatient (CLI) | payer BC, SELFPAY ==
--- NOTE | ~2024-07-14 | XR_ITS ---
XR hand RT min 3V Ordering provider: Annita Hook PA-C History: . S62.396A - Other fracture of fifth metacarpal bone, right... . Comparison: None. FINDINGS: BONES: Boxers fracture is seen in the distal metaphysis of the fifth metacarpal bone extending to the joint space.. No other fractures seen. JOINT SPACES: Normal. SOFT TISSUES: Normal. IMPRESSION: Boxer's fracture. Reviewed, dictated and finalized at location A. IMPRESSION: Boxer's fracture.
--- OUTSIDE RECORDS SUMMARY | 2024-07-14 11:05 | XMS_ITS | Continuity of Care Document ---
Author Organization [employer] Address [address] [place] [address] Phone Care Team Providers Care Freelance Recruiter Name Role Phone Mohit Casillas NP Unavailable [...] ssessment, With Scoring/Doct, Per Stndrd Instrument OFFICE [id number] BODY MASS INDEX DOCD SYST BP LT 130 MM HG DIAST BP < 80 MM HG Brief Emotional/Behavioral A ssessment, With Scoring/Doct, Per Stndrd Instrument Clin depression screen doc Brief Emotional/Behavioral A ssessment, With Scoring/Doct, Per Stndrd Instrument OFFICE [id number]-[id number]-MED BODY MASS INDEX DOCD SYST BP LT [...] Copied on Encounter [facility], [address], [place], [place], [id number] , tel: [phone] [facility] No Information 4 Vinny Rueda. [address] [place] [address], [address], [place]. tel: [phone] [facility], [address], [place], [place], [id number] , tel: [phone] [facility] No Information 4 Jn Glover. [address] [place] [address], [id number] , [place]. tel: [phone] OFFICE NHRWI-PYG-NP PANDED [facility], [address], [place], [place], [id number] , [place] tel: [phone] [facility] 6 week f/u (chief complaint)C hronic Conditions (chief complaint) Body mass index [BMI] 32.0-32.9, adultMajor depressive disorder, recurrent, moderate 4 Omid Walker. [address] [place] [address], [id number] , [place]. tel: [phone] Referring Provider: Denise Babcock, [address] [place] [address], [address] . tel:[phone] OFFICE YUIPF-RKO-II MP-MED [facility], [address], [place], [place], [id number] , [place] tel: [phone] [facility] new pt (chief complaint) Body mass index [BMI] 32.0-32.9, adultCurrent moderate episode of major depressive disorder without prior episodeAnxietyObesit y (BMI 30-39.9)Impaired attention 4 Jn Glover. [address] [place] [address], [id number] , [place]. tel:[phone] Referring Provider: Denise Babcock, [address] [place] [address], [address] . tel:[phone] Family History Family Member Type Diagnosis Age [...] well Payers Payer name Insurance type Covered democrat ID Authordex moratameka(s) [facility] [id number] Social History Type Description Quantity Date Captured [...] [facility] Chronic Conditions *See Chronic Conditions HPI new pt Patient presents to office to establish care as a new patient.Previous PCP: noneHe is and lives at home alone.He works full-time at [employer] working swing shift. no children.Mother, Darcie Tellez [...]
== END 2024-07-14 09:48 | disposition home or self-care (01) ==
PROVIDERS: PCP Physician Assistant Surgical; Visit Provider Physician Assistant Surgical
DX: S62.396A Other fracture of fifth metacarpal bone, right hand, initial encounter for closed fracture (principal); X58.XXXA Exposure to other specified factors, initial encounter
CPT/HCPCS: 73130